=== PATIENT | female | born 1960 | race Caucasian/White ===

== ENCOUNTER 2018-08-11 09:02 | Outpatient (CLI) | payer OTHER ==
[2018-08-11] MEDS ORDERED: Iopamidol 370 76% 100 ML VIAL ONE (09:38)
--- NOTE | 2018-08-11 11:15 | CT ---
ABDOMEN AND PELVIC CT SCAN WITH IV CONTRAST: HISTORY: Abscess RLQ pain. FINDINGS: Probable small hiatal hernia. The lung bases are clear. Status post cholecystectomy. A 3.4 cm diam eter somewhat lobulated-appearing cyst in the inferior right lobe of the liver. No ductal dilatation . Pancreas, spleen, and adrenal glands were unremarkable. Prominent left renal parapelvic cyst/cyst s up to 4.5 cm. No renal calculus or acute obstruction. Normal-appearing appendix. There is kianna e moderate colonic wall thickening involving the left colon and sigmoid colon with some scattered col onic diverticulosis. There is no significant focal pericolonic abnormal fat stranding or abscess or extraluminal gas. No convincing Ct evidence for a focal acute diverticulitis. It is conceivable thi s thick walled appearance could be related to chronic diverticulitis or could possibly be related to nonspecific left-sided and sigmoid colon colitis. No abscess or abnormal fluid collection within the abdomen or pelvis. 1 x 2 cm diameter nonaggressive bone lesion in the left femoral neck with some central ossification, evidence for a liposclerosing myxofibrous tumor. IMPRESSION: Some nonspecific moderate diffuse colonic wall thickening of the left and sigmoid colon with some sca ttered associated diverticulosis, but no convincing CT evidence for focal acute diverticulitis. Poss ibilities include that of focal nonspecific colitis or possibly chronic diverticulitis. No renal jose culus or obstruction. Normal-appearing appendix. Left renal parapelvic cyst/cysts and right lobe of liver cysts. 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 Other fin dings as above. POS: [facility]
== END 2018-08-11 09:03 | disposition home or self-care (01) ==
LOC: MADRAD 09:02
PROVIDERS: ATTEND Nurse Practitioner Family
DX: K92.1 Melena (principal); R10.9 Unspecified abdominal pain; R19.7 Diarrhea, unspecified; K63.89 Other specified diseases of intestine; K57.30 Diverticulosis of large intestine without perforation or abscess without bleeding; N28.1 Cyst of kidney, acquired; K76.89 Other specified diseases of liver; D49.2 Neoplasm of unspecified behavior of bone, soft tissue, and skin; Z90.49 Acquired absence of other specified parts of digestive tract
CPT/HCPCS: 74177